=== PATIENT | female | born 1950 | race Caucasian/White ===

== ENCOUNTER 2024-11-01 13:52 | Outpatient (AMB) | payer MEDICARE, OTHER, SELFPAY ==
--- NOTE | 2024-11-01 13:53 | MHC.OFFVIS ---
Vital Signs 11/01/24 13:56 Height 5 ft 2 in Weight 104 lb BMI 19.0 BP 123/56 L Blood Pressure Location Lt brachial Position Sitting Respiration 16 Pulse 65 Pulse Source Pulse Oximeter Pulse Oximetry (%) 99 Oxygen Delivery Method Room Air Intake Visit Reasons: Low back pain Allergies bacitracin [From Neosporin ([id number])] Adverse Reaction (Intermediate, Verified 11/01/24 13:57) Rash neomycin [From Neosporin (mvq-knd-kqhjg)] Adverse Reaction (Intermediate, Verified 11/01/24 13:57) Rash polymyxin B [From Neosporin (ktf-ngd-hjemp)] Adverse Reaction (Intermediate, Verified 11/01/24 13:57) Rash Medication List - Last Reconciled 11/01/24 by Gaye Pan LPN alendronate 70 mg PO QWEEK antiarthritic combination no.2 (glucosamine-chondroitin) mg PO atorvastatin 10 mg PO BEDTIME calcium carbonate 500 mg PO DAILY famotidine 20 mg PO BEDTIME geriatric fexsmjtz-ylbi-ktri 1 tab PO DAILY latanoprost 0.005% 1 drp ophthalmic (eye) DAILY omega 6-lpr-fer-fish oil 60-90-500 mg (Fish Oil) 1 cap PO DAILY primidone 25 mg PO BEDTIME prucalopride (Motegrity) 2 mg PO DAILY sennosides (senna) 8.6 mg PO BEDTIME topiramate 25 mg PO DAILY HPI Comments Details: Diana Souza is very pleasant 74 years old female who came in my office with complains on pain all over the body. The most severe pain she experiences today is pain in her left shoulder. However she complains on pain on the entire left side including pain in the left hip, left thigh, left ankle, left side of the neck. She also reported that in the past she experiences severe pain on the right side of the body with the same distribution. She reported that she can not sleep normally. She can do activities of daily living. She can take care of herself. She can not function normally. She is retired individual. She reports that standing in 1 position in prolonged time makes her pain worse. She reports that if she is sitting for long period of time she needs to stand up and start walking the same is true about prolonged standing. In the morning she feels most uncomfortable, she constantly changes her position in bed when she sleeps. In terms of tissue damage he reports her pain as dull, sore, hurting, aching, heavy sensation. Her pain is constant in nature. She reports her pain from 4 to 10/10 in intensity. She had multiple images at [facility] results of which available scanned into the chart. On the MRI spondylolisthesis and spondylolysis L5-S1 is documented. On the shoulder x-rays significant glenohumeral arthritis on both shoulders is documented. She had extensive course of physical therapy in 2020 done in [facility]. She also did chiropractic manipulation in 2023. She denies any help from either physical therapy or from chiropractic manipulations. She received 4 different kind of injections by [facility] in her lumbar spine. She does not remember the names of the injections however she stated that none of them were helpful. She tried NSAIDs including ibuprofen for her pain and reports moderate improvement with the pain sensation. Her past medical history significant for osteopenia fatigue irritable bowel syndrome with constipation and widespread arthritis. She never had any surgeries before she has hands tremor which is being treated by neurologist. She stopped smoking cigarettes 49 years ago she denies drinking alcohol she does not drink caffeinated beverages and she denies recreational drugs. Review of Systems Const Reports no additional complaints ENT Reports Normal hearing present Card Reports no additional complaints Resp Reports no additional complaints GI Reports no additional complaints Musc Reports as per HPI Neuro Reports as per HPI, Reports Normal hearing present, Denies Abnormal speech present, Denies confusion and Denies Sensory deficit (Neuro) Psych Reports no additional complaints and Denies confusion Physical Exam Vital Signs: Last Vital Signs Pulse 65 11/01/24 13:56 Resp 16 11/01/24 13:56 BP 123/56 L 11/01/24 13:56 Pulse Ox 99 11/01/24 13:56 Oxygen Delivery Method Room Air 11/01/24 13:56 BMI result Body Mass Index 19.0 Const General: no acute distress; No confusion Nutritional Appearance: thin Orientation/consciousness: patient oriented x3 and No confusion Eyes General: appearance normal, both eyes and all related structures Pupils: Equal, round and reactive pupils present EOM: EOMs intact bilaterally Neck Neck: No full ROM Chest Chest palpation & inspection: normal inspection of the chest Resp Effort & Inspection: normal respiratory effort, able to speak in complete sentences, normal respiratory pattern, no audible wheezes and no cough Cardio Jugular venous distension: no JVD GI Inspection: Yes normal to inspection Back/Spine/Pelvis Other: Raffi test is negative bilaterally. Patient reports pain in projection of the bilateral trochanteric bursa with performance of the Raffi test bilaterally. Neuro General: patient oriented x3, gait normal and No confusion Cranial nerves: Yes CN's II-XII intact bilaterally, Yes Equal, round and reactive pupils present, Yes Normal hearing present and Yes Ability to bilaterally elevate shoulders present Speech: No Abnormal speech present Gait exam (Neuro): Normal gait present Motor exam (neuro): 5/5 motor strength present throughout Sensory Exam: No Sensory deficit (Neuro) Extrem Other: Limited range of motion of the left shoulder joint painful elevation of the arm above the shoulder line. General: No pedal edema Psych Speech and movement: Normal speech and movement present Affect: normal affect Attitude: cooperative Thought process: Normal thought process present Thought content: Normal thought content present Insight: Good insight present (Psych) Judgement: Good judgement present (Psych) Results Reviewed Results Reviewed: Lumbar spine x-ray 10/20/2024. Findings: There are 5 xsm-kjr-ytynkxt lumbar type vertebral bodies. No acute fracture or subluxation seen. Moderate to severe intervertebral disc height loss at L5-S1 is stable from 2021 and also noted at L2-L3 which is slightly worse as compared to 202. There are associated endplate sclerotic changes. Mild anterolisthesis of L5 on S1 measuring up to 9 mm. Trace retrolisthesis of L2 over L3. Bilateral facet arthropathy of the lower lumbar spine. Cervical spine x-ray 10/20/2024. Findings: No bone lesion or fractures. Normal odontoid and C1-C2 relationship. Normal alignment severe intervertebral disc space narrowing and endplate sclerotic noted at L C4-C5. Multilevel bilateral facet arthropathy noted. Moderate right C4-C5 neural foraminal narrowing and moderate left C5-C6 neural foraminal narrowing noted. Normal prevertebral soft tissues and clear lung apices. Shoulder x-ray left two views 10/20/2024. Findings: No fracture or dislocation. Mild glenohumeral joint space narrowing and marginal spurring. Mild degenerative changes of the AC joint. The portion of the clavicle included on the exam is normal. No calcification of the rotator cuff. Mild degenerative changes left shoulder without acute fracture or dislocation. MRI lumbar spine without contrast. Test date 09/22/2022. Mild leftward curvature of the lumbar spine. Anterolisthesis of L5 on S1 measures 6 mm in conjunction with bilateral L5 spondylolysis lysis. Mild lateral listhesis of L2 on L3. The lumbar vertebral bodies are normal in height. L5-S1 disc is desiccated and severely diminished in height. Moderate loss of height of L2-L3 with marginal spurring and Modic type endplate changes. Mild facet arthrosis are present at L4-5 and L5-S1. The conus terminates at T12-L1. No epidural fluid collection. The paraspinal soft tissues and visualized retroperitoneal structures are unremarkable. L1-L2: No central canal or foraminal stenosis. L2-L3: Concentric disc osteophyte complex asymmetric to the right posteriorly. Mild right central canal and subarticular recess narrowing with crowding of the right L3 nerve root without impingement. Zmjo-gy-mhmiausu foraminal narrowing. L3-L4 subtle broad-based posterior disc bulge. No significant central canal narrowing. Minimal foraminal narrowing. L4-5: Mild broad-based posterior disc bulge with superimposed brought central disc protrusion and mild facet arthrosis. Mild central canal narrowing. Mild right and minimal left foraminal narrowing. L5-S1 spondylolisthesis and spondylolysis. Central canal stenosis. Mild foraminal narrowing of the left greater than right crowding of the exiting left L5 nerve roots. DEXA scan: The patient has osteoporosis as determined by WHO criteria. Assessment & Plan Assessment & Plan (1) Primary osteoarthritis, left shoulder: Code(s): M19.012 - Primary osteoarthritis, left shoulder Category: Medical (2) Rheumatoid arthritis: Code(s): M06.9 - Rheumatoid arthritis, unspecified Category: Medical (3) Acquired spondylolysis of lumbar spine: Code(s): M43.06 - Spondylolysis, lumbar region Category: Medical (4) Spondylosis of lumbar region without myelopathy or radiculopathy: Code(s): M47.816 - Spondylosis without myelopathy or radiculopathy, lumbar region Category: Medical (5) Chronic pain syndrome: Code(s): G89.4 - Chronic pain syndrome Category: Medical (6) Left shoulder pain: Code(s): M25.512 - Pain in left shoulder Category: Medical Plan This patient with widespread pain in multiple areas of the body could be related to rheumatoid arthritis. Other systemic diseases could also be considered and excluded. She requested me to refer her to teacher dancing. I will refer her to Dr. Keane. This patient received multiple injections at [facility]. Patient states that all of them were administered to her lumbar spine. She will sign medical information release note and we will obtain the name of the injections from [facility]. The patient stated that those injections were not working. If there anything is left for me to be addressed I will take it into consideration. Treatment with Celebrex was discussed with the patient. The patient appeared to be concerned with the cost of the medication and decided to continue with ibuprofen. Risks and benefits of ibuprofen were discussed with the patient. I will schedule this patient for shoulder injection under x-ray guidance. Risks and benefits were briefly explained to the patient. Patient agreed to go for the procedure. Orders: Referrals Rheumatology Referral M06.9 - Rheumatoid arthritis, unspecified Patient Instructions: I here by testify that I spent 48 minutes in conversation with this patient as well as evaluating her diagnostic studies, external records planning her care and organizing this note. Coding Level of Care Code New Pt Level 4 (63164) Diagnoses Primary osteoarthritis, left shoulder M19.012 Rheumatoid arthritis M06.9 Acquired spondylolysis of lumbar spine M43.06 Spondylosis of lumbar region without myelopathy or radiculopathy M47.816 Chronic pain syndrome G89.4 Left shoulder pain M25.512
[2024-11-01 13:56] VITALS: BP 123/56; PULSE 65; RESP 16; O2SAT 99; BMI 19.0
--- OUTSIDE RECORDS SUMMARY | 2024-11-01 16:05 | XMS_ITS | Continuity of Care Document ---
Author Organization [facility] Address [address] [place] [address] Phone Care Team Providers Care Recreation Attendant Name Role Phone CONV, [facility] Unavailable Unavailable Advance Directives Directive Yes / No Effective Date File Name No Information Encounters Encounter Description Practice Location Reason(s) For Visit Diagnoses Date Provider Providers Copied on Encounter [facility] /[facility], [address] [place] [address], [facility], tel:[phone] Z [facility] CONV No Information CONV [facility]. [address] [place] [address], [id number], [place]. Family History Family Member Type Diagnosis Age At Onset No Information Immunizations Vaccine Date Status Comments INFLUENZA VACCINE administered Note: [place] ; Source: New Immunization Record Payers Payer name Insurance type Covered alliance party ID Authoriza tion(s) No Information Social History Type Description Quantity Date Captured Comments Sex Female Smoking Status No Information Chief Complaint And Reason For Visit No Information History Of Present Illness Encounter Date Complaint History Of Prese nt Illness No Information Instructions Date Instruction Additional Infor mation No Information Assessments Type Assessment Date No Information Patient Care Teams Name Effective Dates (start - stop) Status Members No Information
--- OUTSIDE RECORDS SUMMARY | 2024-11-01 16:05 | XMS_ITS | Clinical Summary ---
Author Organization [facility] Address [address] [place] [address] Care Team Providers Care Program Management Specialist Name Role Phone Silva Aguilar MD Primary Care Provider [phone] Allergies Active Allergy Reactions Criticality Noted Date Comments Duloxetine Constipation 09/21/2024 caused constipation, did not help back pain Hbhnycof-Sbyltqjztd-Frkvriln n Rash 09/21/2024 Hydrocortisone Rash 06/22/2024 Medications alendronate (FOSAMAX) 70 mg tablet Take 70 mg by mouth once a week. Active latanoprost (XALATAN) 0.005% ophthalmic solution Instill 1 drop into both eyes nightly. 4 Active Motegrity 2 mg tablet Take by mouth daily. Active calcium carbonate/vitamin D3 (CALCIUM 500 WITH D ORAL) Take by mouth. Active senna (SENOKOT) 8.6 mg tablet Take 1 tablet by mouth once a day. Active famotidine (PEPCID) 20 mg tablet Take 20 mg by mouth once a day. Active glucos sul 2KCl/msm/chond/C/ Mn (GLUCOSAMINE CHONDROITIN ORAL) Take by mouth. Active BIOTIN ORAL Take 5,000 mcg by mouth daily. Active fish oil 340-1,000 mg capsule Take 1,000 mg by mouth once a day. Active mv-min/iron/folic /calcium/vitK (WOMEN'S MULTIVITAMIN ORAL) Take by mouth. Active atorvastatin (LIPITOR) 10 mg tablet SMARTSI Tablet(s) By Mouth Daily 4 Active primidone (MYSOLINE) 50 mg tablet Take 1/2 tablet at bedtime and increase by 1/2 tablet per week until taking 1 tablet twice daily. 180 tablet 3 Active topiramate (TOPAMAX) 25 mg tablet Take 1 tablet (25 mg total) by mouth once a day. 90 tablet 3 4 Active Encounters Date Type Department Care Team Description 09/21/2024 4:00 PM EST Office Visit [facility] [address] [place] [phone] Ora Forte MD Arthralgia, unspecified joint (Primary Dx); Pain in joint of left shoulder 08/21/2024 myChart Message [facility] [address] [place] [id number] Ora Forte MD Topiramate effects from Last 3 Months Family History Medical History Relation Name Comments Cancer Mother Relation Name Status Comments Father Mother Social History Tobacco Use Types Packs/Day Years Used Date Smoking Tobacco: Never Smokeless Tobacco: Never Tobacco Cessation:Counseling Given: Not Answered Alcohol Use Standard Drinks/Week Comments Not Currently 0 (1 standard drink = 0.6 oz pur e alcohol) Comments Unknown Sex and Gender Information Value Date Recorded Sex Assigned at Female 06/19/2024 2:06 PM EDT Legal Sex Female 2:35 PM EDT Gender Identity Female 06/19/2024 2:06 PM EDT Sexual Orientation Straight 06/19/2024 2: 06 PM EDT Last Filed Vital Signs Vital Sign Reading Time Taken Comments Blood Pressure 105/64 09/21/2024 3:37 PM EST Pulse 71 09/21/2024 3:37 PM EST Temperature 36.2 ??C (97.1 ??F) 09/21/2024 3:37 PM ES T Respiratory Rate 18 09/21/2024 3:37 PM EST Oxygen Saturation - - Inhaled Oxygen Concentration - - Weight 46.4 kg (102 lb 3.2 oz) 09/21/2024 3:37 P M EST Height - - Body Mass Index - - Plan of Treatment Upcoming Encounters Date Type Department Care Team (Late st Contact Info) Description 02/01/2025 2:00 PM EDT Office Visit [facility] [address] [place] [address] Ora Forte MD [address] [place] [address] Health Maintenance Due Date Last Done Comments Cologuard 1950 Colon Cancer Screening 1950 Colonoscopy 1950 FOBT / Fit Test 1950 Hepatitis C Screening 1950 Sigmoidoscopy 1950 Mammogram 1990 Osteoporosis Screening 2000 DTaP,Tdap,and Td Vaccines (1 - Tdap) 03/14/2016 03/13/2016 Alcohol/Substance Use Screening 10/11/2024 Depression Screening and Follow-Up 10/11/2024 Health Care Proxy Review 10/11/2024 Social Drivers of Health Annual Screening 10/11/2024 Pneumococcal Vaccine: 65+ Years Completed 03/15/2017, 03/15/2016 Zoster Vaccines Completed 04/21/2022, 01/08/2022 COVID-19 Vaccine Completed 06/08/2024, 05/2024, 07/13/2023, Additional history exists RSV Vaccine (60+ years old and patients) Completed 06/28/2024 Influenza Vaccine Completed 07/15/2024, , 07/02/2022, Additional history exists Hepatitis B Vaccines Aged Out No long er eligible based on patient's age to complete this topic Insurance MEDICARE [facility] SUPP Care Teams Program Management Specialist Relationship Specialty Start Date End Date Silva Aguilar MD [address] [place] [id number] PCP - General 03/30/24
--- OUTSIDE RECORDS SUMMARY | 2024-11-01 16:05 | XMS_ITS | Referral Summary ---
Author Organization [facility] Address [address] [place] [address] Care Team Providers Care Airplane Dispatch Clerk Name Role Phone Silva Aguilar MD Primary Care Provider [phone] Encounters Date Type Department Care Team Description 09/21/2024 4:00 PM EST Office Visit [facility] [address] [place] [phone] Ora Forte MD Arthralgia, unspecified joint (Primary Dx); Pain in joint of left shoulder 08/21/2024 myChart Message [facility] [address] [place] [phone] Ora Forte MD Topiramate effects from Last 3 Months Allergies Active Allergy Reactions Criticality Noted Date Comments Duloxetine Constipation 09/21/2024 caused constipation, did not help back pain Hbqcfjcd-Ehkjvfowjk-Glcupiam n Rash 09/21/2024 Hydrocortisone Rash 06/22/2024 Medications alendronate (FOSAMAX) 70 mg tablet Take 70 mg by mouth once a week. Active latanoprost (XALATAN) 0.005% ophthalmic solution Instill 1 drop into both eyes nightly. Active Motegrity 2 mg tablet Take by [...] 1 tablet twice daily. 180 tablet 3 4 Active topiramate (TOPAMAX) 25 mg tablet Take 1 tablet (25 mg total) by mouth once a day. 90 tablet 3 4 Active Social History Tobacco Use Types Packs/Day Years [...] Description 02/01/2025 2:00 PM EDT Office Visit [facility] [address] [place] [address] Ora Forte MD [address] [place] [address] Insurance MEDICARE [facility] Care Teams Airplane Dispatch Clerk Relationship Specialty Start Date End Date Silva Aguilar MD [address] [place] [id number] PCP - General 03/30/24
== END 2024-11-01 14:27 | disposition home or self-care (01) ==
PROVIDERS: PCP Pediatrics; Referring Provider Pediatrics; Visit Provider Anesthesiology
DX: M19.012 Primary osteoarthritis, left shoulder (principal); M06.9 Rheumatoid arthritis, unspecified; M43.06 Spondylolysis, lumbar region; M47.816 Spondylosis without myelopathy or radiculopathy, lumbar region; G89.4 Chronic pain syndrome; M25.512 Pain in left shoulder
CPT/HCPCS: 99204

== ENCOUNTER → 2024-11-01 13:52 | Outpatient (BNVA) | payer MEDICARE, OTHER, SELFPAY | PROVIDERS: PCP Pediatrics; Referring Provider Pediatrics; Visit Provider Anesthesiology | DX: M19.012 Primary osteoarthritis, left shoulder (principal); M06.9 Rheumatoid arthritis, unspecified; M54.50 Low back pain, unspecified; M43.06 Spondylolysis, lumbar region; M47.816 Spondylosis without myelopathy or radiculopathy, lumbar region; G89.4 Chronic pain syndrome | CPT/HCPCS: 99202 ==